=== PATIENT | female | born 1990 | race Asian ===

== ENCOUNTER 2023-10-13 05:00 | Inpatient (IN) | payer BC ==
[2023-10-14] MEDS ORDERED: fentaNYL 50 mcg/mL 1 mL Vial SLOW IVP PRN (00:56)
[2023-10-14] MEDS ORDERED: hydrALAZINE 20 MG/ML VIAL SLOW IVP PRN ×2 (00:56→23:48)
[2023-10-14] MEDS ORDERED: Lidocaine 1% (PF) 30 ML VIAL SC PRN (00:56)
[2023-10-14] MEDS ORDERED: Misoprostol 200 MCG TAB PR PRN (00:56)
[2023-10-14] MEDS ORDERED: Methylergonovine 0.2 MG/ML VIAL IM PRN (00:56)
[2023-10-14] MEDS ORDERED: Promethazine HCl 25 MG/ML VIAL IM PRN ×2 (00:56→14:02)
[2023-10-14] MEDS ORDERED: Ondansetron PF 4 MG/2 ML Vial IVP PRN ×2 (00:56→14:02)
[2023-10-14] MEDS ORDERED: Zolpidem Tartrate 5 MG TAB PO PRN (00:56)
[2023-10-14] MEDS ORDERED: HYDROcodone/Acetaminophen 5/325 mg Tablet PO PRN ×4 (00:56→23:48)
[2023-10-14] MEDS ORDERED: Ibuprofen 800 MG TAB PO PRN (00:56)
[2023-10-14 00:57] VITALS: BMI 29.0
[2023-10-14] MEDS ORDERED: Oxytocin 30 units/NS 500 ML 500 ML IV SCH ×3 (01:00→23:48)
[2023-10-14] MEDS: Lactated Ringer's 1,000 ML IV SCH ×2 (02:10→19:10)
[2023-10-14 02:31] LABS: Hematocrit 34.3 % (34.9-44.5); Hemoglobin 11.1 g/dL (12.0-15.5); Mean Corpuscular HGB CONC 32.4 g/dL (32.0-36.0); Mean Corpuscular Hemoglobin 29.8 pg (27.0-33.0); Mean Platelet Volume 9.2 fl (7.4-10.4); Platelet Count 264 10x3/uL (150-450); RBC Distribution Width 12.1 % (11.5-14.5); Red Blood Cell (RBC) Count 3.73 10x6/uL (3.90-5.03); White Blood Cell (WBC) Count 8.4 10x3/uL (3.5-10.5)
[2023-10-14] MEDS: Misoprostol 100 MCG TAB VAG SCH ×3 (02:44→09:49)
[2023-10-14 03:04] LABS: HBSAg Index 0.16 S/CO (0-0.99); Hep B Surf Ag - L&D Non-Reactive S/CO (NonReactive)
[2023-10-14 03:05] LABS: Syphilis Antibody Nonreactive (Nonreactive); Syphilis Antibody Index 0.08 S/CO (<1.00 Non-Reactive)
[2023-10-14] MEDS ORDERED: Bupivacaine 0.25% HCL 30 ML VIAL ONE (08:00)
[2023-10-14] MEDS ORDERED: fentaNYL/Ropivacaine Epidural 100 ML ONE (14:01)
[2023-10-14] MEDS ORDERED: Moisturizing Cream (Eucerin) 113 GM JAR TOP PRN (14:02)
[2023-10-14] MEDS ORDERED: ePHEDrine Sulfate 50 MG/10 ML VIAL SLOW IVP PRN (14:02)
[2023-10-14] MEDS ORDERED: Naloxone HCl 0.4 mg/ml Vial IVP PRN ×2 (14:02)
[2023-10-14] MEDS ORDERED: Lactated Ringer's 500 ML IV PRN (14:02)
[2023-10-14] MEDS ORDERED: diphenhydrAMINE 50 MG/ML VIAL IVP PRN (14:02)
[2023-10-14] MEDS ORDERED: Acetaminophen 325 MG TAB PO PRN (14:02)
[2023-10-14] MEDS ORDERED: Communication Order-Pharmacy FS SCH (14:15)
[2023-10-14] MEDS ORDERED: fentaNYL 2 mcg/Ropivacaine 0.2% Epidural 100 ML CADD EPIDURAL SCH (14:15)
[2023-10-14] MEDS ORDERED: Tranexamic Acid 1,000 MG/10 ML VIAL ONE (20:22)
[2023-10-14] MEDS ORDERED: Misoprostol 200 MCG TAB ONE (20:22)
[2023-10-14] MEDS ORDERED: Boostrix 0.5 ML (Tdap) VIAL (>/=7 yrs of age) IM ONE (23:48)
[2023-10-14] MEDS ORDERED: Benzocaine-Menthol 82.5 ML CAN TOP PRN (23:48)
[2023-10-14] MEDS ORDERED: Misoprostol 200 MCG TAB VAG PRN (23:48)
[2023-10-14] MEDS ORDERED: Milk Of Magnesia 30 ML UDCUP PO PRN (23:48)
[2023-10-14] MEDS ORDERED: Bisacodyl 10 MG SUPP PR PRN (23:48)
[2023-10-14] MEDS ORDERED: Docusate 100 MG CAP PO SCH (23:59)
[2023-10-15] MEDS: Ibuprofen 800 MG TAB PO SCH ×3 (05:41→21:48)
[2023-10-15] MEDS: Misoprostol 100 MCG TAB VAG SCH ×2 (07:37→07:38)
[2023-10-15] MEDS: Lactated Ringer's 1,000 ML IV SCH (07:38)
[2023-10-15] MEDS: Prenatal Vitamin 1 TAB PO SCH (10:15)
[2023-10-15] MEDS: Ferrous Sulfate 325 MG TAB PO SCH ×2 (10:15→16:57)
[2023-10-15] MEDS: Docusate 100 MG CAP PO SCH ×2 (10:15→21:48)
[2023-10-16] MEDS: Ibuprofen 800 MG TAB PO SCH ×2 (05:32→13:14)
[2023-10-16] MEDS: Ferrous Sulfate 325 MG TAB PO SCH (07:21)
[2023-10-16 08:12] VITALS: BP 101/69; TEMP 98.3
[2023-10-16] MEDS: Prenatal Vitamin 1 TAB PO SCH (09:15)
[2023-10-16] MEDS: Docusate 100 MG CAP PO SCH (09:15)
== END 2023-10-16 18:20 | disposition home or self-care (01) | DRG 806 ==
LOC: CSHLD 10-14 00:34 → CSHPP 10-14 22:50
PROVIDERS: ADMIT Obstetrics & Gynecology; ATTEND Obstetrics & Gynecology
PROC: 10E0XZZ Delivery of Products of Conception, External Approach (ICD-10-PCS; principal; 2023-10-14)
PROC: 10907ZC Drainage of Amniotic Fluid, Therapeutic from Products of Conception, Via Natural or Artificial Opening (ICD-10-PCS; 2023-10-14)
PROC: 10H07YZ Insertion of Other Device into Products of Conception, Via Natural or Artificial Opening (ICD-10-PCS; 2023-10-14)
PROC: 0UQMXZZ Repair Vulva, External Approach (ICD-10-PCS; 2023-10-14)
PROC: 0HQ9XZZ Repair Perineum Skin, External Approach (ICD-10-PCS; 2023-10-14)
DX: O70.1 Second degree perineal laceration during delivery (principal); O72.1 Other immediate postpartum hemorrhage; Z37.0 Single live birth; O86.4 Pyrexia of unknown origin following delivery; O71.82 Other specified trauma to perineum and vulva; Z3A.39 39 weeks gestation of pregnancy
CPT/HCPCS: 51702; 85027; 86780; 86850; 86900; 86901; 87340; J2590; J7120; S0020